=== PATIENT | male | born 1950 | race African-American/Black ===

== ENCOUNTER 2020-03-14 18:35 | Emergency (ER) | payer OTHER ==
--- NOTE | 2020-03-14 19:39 | RAD ---
EXAM: CHEST ONE VIEW HISTORY: Shortness of breath and weakness. Decreased appetite. COMPARISON: 11/12/2019 FINDINGS: Cardiac silhouette remains in enlarged. Pulmonary vasculature is within normal limits. There has been interval resolution in the bilateral perihilar interstitial and patchy parenchymal opacities when compared to prior exam. The lungs appear clear on today's examination, and there is no consolidation or pleural fluid. No other interval change. IMPRESSION: No acute cardiopulmonary process.
[2020-03-14 19:52] LABS: Hemoglobin 13.8 g/dL (14.0-18.0); Mean Corpuscular Hemoglobin 28.7 pg (27.0-31.0); Mean Corpuscular Volume 84.5 fL (78.0-98.0); Mean Platelet Volume 8.2 fL (7.4-10.4); Platelet Count 159 thou/uL (130-400); RBC Distribution Width 13.7 % (11.5-14.5); Red Blood Cell (RBC) Count 4.81 mill/uL (4.70-6.10); White Blood Cell (WBC) Count 3.5 thou/uL (4.8-10.8)
[2020-03-14 20:10] LABS: ALT (SGPT) 16 U/L (8-55); AST (SGOT) 31 U/L (5-34); Albumin 4.2 g/dL (3.4-4.8); Alkaline Phosphatase 96 U/L (40-110); Anion Gap 18 mmol/L (10-20); BUN (Urea Nitrogen) 32 mg/dL (8.4-25.7); Bilirubin, Total 0.7 mg/dL (0.2-1.2); Calc. Creatinine Clearance 0 mL/min (70-130); Calcium 9.5 mg/dL (7.8-10.44); Carbon Dioxide 20 mmol/L (23-31); Chloride 95 mmol/L (98-107); Estimated GFR-MDRD 48; Glucose 89 mg/dL (83-110); Potassium 3.2 mmol/L (3.5-5.1); Protein, Total 7.2 g/dL (5.8-8.1); Sodium 130 mmol/L (136-145)
[2020-03-14 20:16] LABS: Band 42 % (5-11); Lymphocytes 5 % (21-51); MDiff Complete? YES; Monocytes 3 % (0-10); Neutrophil 47 % (42-75); Ovalocytes SLIGHT = 2-5 cells (100X) (0-1/hpf); Platelet Morphology Comment Appears Adequate; Polychromasia SLIGHT = 2-3 cells (100X) (0-2/hpf); Reactive Lymphocytes 3 % (0-10); Reflex for Review?? YES; Tear Drops SLIGHT = 2-5 cells (100X) (0-1/hpf)
[2020-03-14] MEDS ORDERED: Potassium Chloride 20 MEQ TAB ONE (20:35)
[2020-03-14] MEDS ORDERED: hydrOXYzine 25 MG TAB ONE (20:35)
[2020-03-14] MEDS ORDERED: Nitroglycerin 2% Ointment 1 INCH/1 GM Packet ONE (20:35)
== END 2020-03-14 21:00 | disposition left against medical advice (07) ==
LOC: ERS 18:35
DX: I11.0 Hypertensive heart disease with heart failure (principal); I50.9 Heart failure, unspecified; E87.6 Hypokalemia; E87.1 Hypo-osmolality and hyponatremia; N19 Unspecified kidney failure; F43.10 Post-traumatic stress disorder, unspecified; J44.9 Chronic obstructive pulmonary disease, unspecified; Z87.891 Personal history of nicotine dependence; Z85.038 Personal history of other malignant neoplasm of large intestine; Z85.46 Personal history of malignant neoplasm of prostate; Z79.899 Other long term (current) drug therapy
CPT/HCPCS: 36415; 71045; 80053; 83880; 84484; 85025; 85060; 93005

== ENCOUNTER 2020-07-28 10:31 | Emergency (ER) | payer OTHER ==
--- NOTE | 2020-07-28 11:14 | RAD ---
Chest AP view INDICATION: Weakness COMPARISON: March 14, 2020 FINDINGS: Lungs: The lungs are clear Cardiac silhouette: Stable cardiomegaly. Stable tortuosity of the aorta. Pulmonary vasculature: Normal Pleural spaces: No pleural effusion or pneumothorax is demonstrated. Upper abdomen: No abnormality seen. Osseous structures: No acute osseous abnormality. Additional findings: None. IMPRESSION: Stable cardiomegaly.
[2020-07-28] MEDS ORDERED: Lorazepam 1 MG TAB ONE (11:52)
[2020-07-28 14:09] LABS: #Basophils 0.1 thou/uL (0.0-0.2); #Eosinphils 0.3 thou/uL (0.0-0.7); #Lymphocytes 1.2 thou/uL (1.20-3.40); #Monocytes 0.6 thou/uL (0.11-0.59); %Basophils 1.3 % (0.0-1.0); %Eosinophils 6.2 % (0.0-10.0); %Lymphocytes 30.1 % (21.0-51.0); %Monocytes 13.2 % (0.0-10.0); %Neutrophils 49.2 % (42.0-75.0); Hemoglobin 13.7 g/dL (14.0-18.0); Mean Corpuscular HGB CONC 33.8 g/dL (32.0-36.0); Mean Corpuscular Hemoglobin 30.1 pg (27.0-31.0); Mean Platelet Volume 7.5 fL (7.4-10.4); Platelet Count 176 thou/uL (130-400); RBC Distribution Width 11.8 % (11.5-14.5); Red Blood Cell (RBC) Count 4.56 mill/uL (4.70-6.10); White Blood Cell (WBC) Count 4.1 thou/uL (4.8-10.8)
[2020-07-28 14:33] LABS: ALT (SGPT) 13 U/L (8-55); AST (SGOT) 28 U/L (5-34); Albumin 4.1 g/dL (3.4-4.8); Alkaline Phosphatase 81 U/L (40-110); Anion Gap 16 mmol/L (10-20); BUN (Urea Nitrogen) 25 mg/dL (8.4-25.7); Bilirubin, Total 0.6 mg/dL (0.2-1.2); CK (CPK) 114 U/L (30-200); Calc. Creatinine Clearance 0 mL/min (70-130); Calcium 9.2 mg/dL (7.8-10.44); Carbon Dioxide 21 mmol/L (23-31); Chloride 101 mmol/L (98-107); Estimated GFR-MDRD 62; Globulin 3.2 g/dL (2.4-3.5); Glucose 86 mg/dL (83-110); Potassium 3.9 mmol/L (3.5-5.1); Protein, Total 7.3 g/dL (5.8-8.1); Sodium 134 mmol/L (136-145)
--- NOTE | 2020-07-31 17:11 | EKG ---
Test Reason : Blood Pressure : / mmHG Vent. Rate : 056 BPM Atrial Rate : 056 BPM P-R Int : 176 ms QRS Dur : 090 ms QT Int : 482 ms P-R-T Axes : 063 -36 094 degrees QTc Int : 465 ms Sinus bradycardia Possible Left atrial enlargement Left axis deviation Left ventricular hypertrophy with repolarization abnormality Cannot rule out Septal infarct , age undetermined Abnormal ECG Confirmed by STARR GONZALEZ DO ([id number]), sound editor BONIFACIO JORDAN ([id number]) on 07/31/2020 5:10:34 PM Referred By: Confirmed By:STARR GONZALEZ DO
== END 2020-07-28 15:30 | disposition home or self-care (01) ==
LOC: ERS 10:31
DX: F43.0 Acute stress reaction (principal); F41.9 Anxiety disorder, unspecified; Z79.899 Other long term (current) drug therapy; I11.0 Hypertensive heart disease with heart failure; I50.9 Heart failure, unspecified
CPT/HCPCS: 36415; 71045; 80053; 82550; 84484; 85025; 93005

== ENCOUNTER 2020-10-29 19:05 | Inpatient (IN) | payer OTHER ==
[~2020-10-29 19:05] MED LIST: Iopamidol-370 76% 500 ML 1 ML ONE
[2020-10-29] MEDS ORDERED: Morphine 4 MG/ML VIAL ONE (19:43)
[2020-10-29 19:45] LABS: #Basophils 0.1 thou/uL (0.0-0.2); #Eosinphils 0.2 thou/uL (0.0-0.7); #Lymphocytes 1.1 thou/uL (1.20-3.40); #Monocytes 0.5 thou/uL (0.11-0.59); #Neutrophils 5.7 thou/uL (1.40-6.50); %Basophils 1.9 % (0.0-1.0); %Monocytes 6.3 % (0.0-10.0); %Neutrophils 75.8 % (42.0-75.0); Hemoglobin 13.9 g/dL (14.0-18.0); Mean Corpuscular Hemoglobin 29.7 pg (27.0-31.0); Mean Corpuscular Volume 87.4 fL (78.0-98.0); Mean Platelet Volume 7.5 fL (7.4-10.4); Platelet Count 213 thou/uL (130-400); RBC Distribution Width 12.8 % (11.5-14.5); Red Blood Cell (RBC) Count 4.67 mill/uL (4.70-6.10); White Blood Cell (WBC) Count 7.5 thou/uL (4.8-10.8)
--- NOTE | 2020-10-29 19:47 | RAD ---
Portable frontal chest radiograph: 10/29/2020 COMPARISON: 07/28/2020 HISTORY: Abdominal pain, chest pain FINDINGS: Stable prominence of the cardiac silhouette. No pneumothorax or pleural fluid is seen and t here is no focal consolidation or alveolar edema. IMPRESSION: No acute findings-stable appearance of the chest.
[2020-10-29 20:03] LABS: ALT (SGPT) 17 U/L (8-55); AST (SGOT) 28 U/L (5-34); Albumin 4.7 g/dL (3.4-4.8); Alkaline Phosphatase 102 U/L (40-110); Anion Gap 16 mmol/L (10-20); BUN (Urea Nitrogen) 30 mg/dL (8.4-25.7); Bilirubin, Total 0.6 mg/dL (0.2-1.2); Calc. Creatinine Clearance 0 mL/min (70-130); Calcium 10.4 mg/dL (7.8-10.44); Carbon Dioxide 26 mmol/L (23-31); Chloride 98 mmol/L (98-107); Globulin 3.4 g/dL (2.4-3.5); Glucose 133 mg/dL (83-110); Lipase 21 U/L (8-78); Potassium 4.2 mmol/L (3.5-5.1); Protein, Total 8.1 g/dL (5.8-8.1); Sodium 136 mmol/L (136-145)
--- NOTE | 2020-10-29 20:32 | CT ---
CT abdomen and pelvis: 10/29/2020 COMPARISON: None HISTORY: Abdominal pain with vomiting TECHNIQUE: Axial CT imaging at 5 mm intervals from lung bases through pubic symphysis with IV contras t. Coronal and sagittal reformatted imaging obtained. FINDINGS: The visualized lung bases are unremarkable. No free intraperitoneal air. The stomach is markedly distended and fluid-filled. There is small volum e abnormal free fluid within the pelvis posterior and superior to the urinary bladder. The gallbladder is not well assessed on this exam but appears grossly unremarkable. No suspicious focal l iver lesion is evident. Trace pericardial fluid is noted. The spleen, pancreas, and adrenal glands demonstrate no acute findings. Bilateral low-density renal lesions are noted, likely on the basis of multiple cysts. There are numerous postoperative clips within the pelvis suggesting prior prostatectomy. There is sma ll volume free fluid within the right lower quadrant. The colon is decompressed and there are numerous dilated fluid-filled small bowel loops seen througho ut the abdomen/pelvis. There is a transition point to decompressed distal small bowel within the medial right lower quadrant. There are postoperative clips and there is postoperative suture material in the right lower quadrant associated with the bowel. There is scattered atherosclerotic calcification of the abdominal aorta and its branches. No pelvic, retroperitoneal, or mesenteric lymphadenopathy is seen. There is prominent degenerative change involving the L4-5 interspace. No worrisome lytic or blastic b one lesion. IMPRESSION: Prominent distended and fluid-filled stomach and small bowel with transition to decompres sed small bowel within the right lower quadrant consistent with high-grade small bowel obstruction. Associated small volume free fluid noted in the right lower quadrant/pelvis. Surgical consultation ad vised.
--- NOTE | 2020-10-29 22:37 | PDOC.FPRHP ---
- History of Present Illness Chief Complaint: Abdominal pain History of Present Illness: 70yo M presented to ED with complaint of abdominal pain. He has history of surgery for prostate cancer and ex lap for bowel resection for colon cancer. He states today after eating around noon he developed severe left sided abdominal pain. Since then it has continued and was associated with nausea, burping, and distention. He notes 1 normal bowel movement last night and 2 very small hard bowel movements today. He denies any blood in his stools. In ED patient was found to have high grade small bowel obstruction on the right with small amount of right sided free fluid. They attempted NG tube x2 but pt vomited both times and it came out. Currently pt notes continued abdominal pain that has improved since arrival. He denies history of abdominal pain. ED Course: Morphine for pain. CT abd showing right sided high grade SBO. Called Dr. Howard and agreed to see pt and requested medicine to admit. - Allergies/Adverse Reactions Allergies Allergy/AdvReac Type Severity Reaction Status Date / Time No Known Drug Allergies Allergy Verified 10/30/20 13:38 - History PMHx: cataract, HTN, COPD, CHF, prostate CA, Colon CA. PSHx: Ex lap w/ colon resection, prostatectomy FHx: Non contributory Social: Rare alcohol, occasional smoker - former consistent smoker, denies drugs - Review of Systems General: reports: weight/appetite/sleep changes (decreased appetite). denies: fever/chills Eyes: denies: vision changes, other ENT: denies: nasal congestion, rhinorrhea Respiratory: denies: cough, shortness of breath Cardiovascular: denies: chest pain, edema Gastrointestinal: reports: nausea, constipation, abdominal pain. denies: vomiting, diarrhea, GI bleeding Genitourinary: denies: dysuria, polyuria Skin: denies: rashes, lesions Musculoskeletal: denies: pain, swelling Neurological: denies: syncope, weakness - Vital signs BP: 167/94, Pulse: 74, Resp: 18, Temp: 98.3 (Oral), Pain: 3, O2 sat: 97 on (Room Air), Wt: 56kg - Physical Exam Constitutional: NAD, awake, alert and oriented, well developed HEENT: normocephalic and atraumatic, EOMI -HEENT: cataracts Neck: FROM, trachea midline Heart: RRR, normal S1/S2 Lungs: CTAB, no respiratory distress, good air movement -Abdomen: Distended, tympanic to percussion, no peritoneal signs, no bowel sounds heard Neurological: no focal deficit, CN II-XII intact Skin: no rash/lesions, good turgor Heme/Lymphatic: no unusual bruising or bleeding, no purpura Psychiatric: normal mood and affect, good judgment and insight, intact recent and remote memory FMR H&P: Results - Labs Result Diagrams: 10/30/20 05:18 10/30/20 05:18 Lab results: WBC 7.5 thou/uL (4.8-10.8) 10/29/20 19:29 Hgb 13.9 g/dL (14.0-18.0) L 10/29/20 19:29 Hct 40.8 % (42.0-52.0) L 10/29/20 19:29 MCV 87.4 fL (78.0-98.0) 10/29/20 19:29 Plt Count 213 thou/uL (130-400) 10/29/20 19:29 Neutrophils % 75.8 % (42.0-75.0) H 10/29/20 19:29 Sodium 136 mmol/L (136-145) 10/29/20 19:29 Potassium 4.2 mmol/L (3.5-5.1) 10/29/20 19:29 Chloride 98 mmol/L (98-107) 10/29/20 19:29 Carbon Dioxide 26 mmol/L (23-31) 10/29/20 19:29 BUN 30 mg/dL (8.4-25.7) H 10/29/20 19:29 Creatinine 1.83 mg/dL (0.7-1.3) H 10/29/20 19:29 Glucose 133 mg/dL (83-110) H 10/29/20 19:29 Calcium 10.4 mg/dL (7.8-10.44) 10/29/20 19:29 Total Bilirubin 0.6 mg/dL (0.2-1.2) 10/29/20 19:29 AST 28 U/L (5-34) 10/29/20 19:29 ALT 17 U/L (8-55) 10/29/20 19:29 Alkaline Phosphatase 102 U/L (40-110) 10/29/20 19:29 CK-MB (CK-2) 3.0 ng/mL (0-6.6) 10/29/20 19:29 Serum Total Protein 8.1 g/dL (5.8-8.1) 10/29/20 19:29 Albumin 4.7 g/dL (3.4-4.8) 10/29/20 19: Lipase 21 U/L (8-78) 10/29/20 19:29 - Radiology Interpretation CT scan - abdomen Status: report reviewed by me ( Prominent distended and fluid-filled stomach and small bowel with transition to decompressed small bowel within the right lower quadrant consistent with high-grade small bowel obstruction. Associated small volume free fluid noted in the right lower quadrant/pelvis. Surgical consultation ad vis) FMR H&P: A/P - Plan Small bowel obstruction - Confirmed on CT abd - Hx of abdominal surgeries - likely due to adhesions - Dr. Howard, general surgery, consulted from ED, appreciate recs - Re-attempt NG tube for decompression - IVF at 1.5x maintenance for bowel resuscitation - NPO BREANNA - Cr. 1.87, baseline 1.3 - IVF and trend BMP Indeterminate trop - 0.033 - Could be due to worsening renal function - Asx, no EKG changes - Trend Chronic Medical Hx HTN - resume home rx when reconsiled, prn hydralazine SBP >180 CHF - monitor fluid status with IVF, resume home meds when reconsiled COPD - currently stable on room air, resume inhailers when reconsiled IVF: LR @ 150 VTE: SCD, hold anticoag in case of surgery Diet: NPO Code: Full Dispo: Admit to tele inpatient. Surgery on board. Bowel decompression and resuscitation. PCP: SUSHMA Bennett DO - PGY2 FMR H&P: Upper Level - Plan Date/Time: 10/29/202236 Addendum - Attending - Attending Attestation Date/Time: 10/29/202119 I personally evaluated the patient and discussed the management with Dr. Bennett. I agree with the History, Examination, Assessment and Plan documented above with any addition or exceptions noted below. The patient presents with abdominal pain. High grade small bowel obstruction noted on CT scan. NG tube has been placed twice and pt vomited it back up. Gen surg is being consulted. Will add prn's for blood pressure.
[2020-10-30] MEDS: Lactated Ringer's 1,000 ML IV SCH ×5 (01:20→22:07)
[2020-10-30 01:34] LABS: Bilirubin Negative (Negative); Blood, Urine Negative (Negative); Clarity Clear (Clear); Glucose, Urine (Dipstick) Normal (Negative); Ketone, Urine Negative (Negative); Leukocyte Negative Leu/uL (Negative); Nitrite Negative (Negative); Protein, Urine (Dipstick) Negative (Neg-Trace); Specific Gravity, Urine 1.033 (1.002-1.036); Urobilinogen Normal mg/dL (Less than 2); pH, Urine 7.5 (5.0-9.0)
[2020-10-30 01:43] LABS: Troponin I 0.031 ng/mL (< 0.028)
[2020-10-30] MEDS ORDERED: Ondansetron ODT 4 MG TAB PO PRN (02:24)
[2020-10-30] MEDS ORDERED: hydrALAZINE 20 MG/ML VIAL SLOW IVP PRN (02:24)
[2020-10-30 02:26] VITALS: BMI 18.4
[2020-10-30] MEDS ORDERED: Morphine 4 MG/ML VIAL SLOW IVP SCH (02:30)
[2020-10-30] MEDS ORDERED: hydrALAZINE 20 MG/ML VIAL ONE (02:46)
[2020-10-30] MEDS ORDERED: Ondansetron PF 4 MG/2 ML Vial ONE ×2 (02:46→09:33)
[2020-10-30] MEDS ORDERED: Morphine 2 MG/ML VIAL ONE (02:46)
[2020-10-30] MEDS: Ondansetron PF 4 MG/2 ML Vial IVP PRN ×2 (02:51→09:35)
[2020-10-30] MEDS: Morphine 2 MG/ML VIAL SLOW IVP PRN ×2 (02:54→09:35)
--- NOTE | 2020-10-30 05:00 | PDOC.FM ---
- Subjective Subjective: Patient is resting comfortably in bed. Notes that his nausea and abdominal pain are improved. Denies other concerns, no fever/chills, CP/SOB. - Objective MAR Reviewed: Yes Vital Signs & Weight: Vital Signs (12 hours) Pulse BP 10/30/20 02:57 93 187/123 H Weight Weight 56.7 kg Result Diagrams: 10/30/20 05:18 10/30/20 05:18 Phys Exam - Physical Examination Constitutional: NAD HEENT: PERRLA, moist MMs Respiratory: no wheezing, clear to auscultation bilateral Cardiovascular: RRR, no significant murmur mild distention superior to umbilucus, no peritoneal signs, no BS heard Musculoskeletal: no edema Neurological: non-focal Psychiatric: normal affect, A&O x 3 Dx/Plan - Plan Plan: Small bowel obstruction - Confirmed on CT abd - Likely 2/2 adhesions, with Hx of ex lap for bowel resection for colon cancer, hx surgery for prostate cancer - Dr. Howard, general surgery, consulted from ED, appreciate recs - NG tube placed for decompression - IVF at 1.5x maintenance for bowel resuscitation - NPO BREANNA - Cr. 1.87 -> 1.74, baseline 1.3 - IVF and trend BMP Indeterminate trop - 0.033 - > 0.031 - Possibly 2/2 worsening renal function - Asx, no EKG changes - continue to monitor on tele HTN - NPO> will hold chlorthalidone, carvedilol, hydralazine pending surg recs - prn IV hydralazine CHF - monitor fluid status with IVF - will resume lasix and isosorbide dinitrate pending surg recs COPD - currently stable on room air Hx PTSD - will resume citalopram pending surg recs IVF: LR @ 150 VTE: SCD, hold anticoag in case of surgery Diet: NPO Code: Full Dispo: Admit to tele inpatient. Surgery on board. Bowel decompression and resuscitation. PCP: SUSHMA Addendum - Attending - Attending Attestation Date/Time: 10/30/20 [id number] I personally evaluated the patient and discussed the management with Dr. Todd. I agree with the History, Examination, Assessment and Plan documented above with any addition or exceptions noted below. The patient is feeling better. Abdomen less distended than last night. Will replace NG tube. Gen surg has been consulted.
[2020-10-30] MEDS ORDERED: Morphine 4 MG/ML VIAL ONE ×2 (05:05→09:33)
[2020-10-30 05:28] LABS: #Lymphocytes 0.6 thou/uL (1.20-3.40); #Monocytes 0.5 thou/uL (0.11-0.59); #Neutrophils 11.7 thou/uL (1.40-6.50); %Eosinophils 0.2 % (0.0-10.0); %Lymphocytes 4.3 % (21.0-51.0); %Neutrophils 91.5 % (42.0-75.0); Hemoglobin 13.7 g/dL (14.0-18.0); Mean Corpuscular HGB CONC 33.9 g/dL (32.0-36.0); Mean Corpuscular Hemoglobin 29.9 pg (27.0-31.0); Mean Corpuscular Volume 88.2 fL (78.0-98.0); Mean Platelet Volume 7.3 fL (7.4-10.4); Platelet Count 207 thou/uL (130-400); RBC Distribution Width 12.8 % (11.5-14.5); Red Blood Cell (RBC) Count 4.59 mill/uL (4.70-6.10); White Blood Cell (WBC) Count 12.8 thou/uL (4.8-10.8)
[2020-10-30 05:48] LABS: ALT (SGPT) 15 U/L (8-55); AST (SGOT) 27 U/L (5-34); Albumin 4.5 g/dL (3.4-4.8); Alkaline Phosphatase 88 U/L (40-110); Anion Gap 16 mmol/L (10-20); BUN (Urea Nitrogen) 30 mg/dL (8.4-25.7); Bilirubin, Total 0.6 mg/dL (0.2-1.2); Calc. Creatinine Clearance 31 mL/min (70-130); Calcium 10.2 mg/dL (7.8-10.44); Carbon Dioxide 25 mmol/L (23-31); Chloride 99 mmol/L (98-107); Globulin 3.4 g/dL (2.4-3.5); Glucose 141 mg/dL (83-110); Potassium 3.9 mmol/L (3.5-5.1); Protein, Total 7.9 g/dL (5.8-8.1); Sodium 136 mmol/L (136-145)
--- NOTE | 2020-10-30 09:22 | RAD ---
XR Abdomen 1 View/KUB History: NG tube placement Comparison: Abdomen pelvis CT prior day Findings: Enteric tube tip just beyond the GE junction with side port above the GE junction. Dilated loops of bowel in the abdomen. Evaluation for free air is limited without an upright exam. Impression: Enteric tube side port above the GE junction. Recommend advancing 5 to 6 cm.
[2020-10-30] MEDS: Atorvastatin Calcium 10 MG TAB PO SCH (09:44)
[2020-10-30] MEDS: Citalopram 20 MG TAB PO SCH (09:45)
[2020-10-30] MEDS: Carvedilol 25 MG TAB PO SCH ×2 (09:45→22:06)
[2020-10-30] MEDS: Chlorthalidone 25 MG TAB PO SCH (09:45)
[2020-10-30] MEDS: hydrALAZINE 25 MG TAB PO SCH ×3 (09:45→22:06)
[2020-10-30 09:57] LABS: SARS-CoV-2 PCR by NAA Not Detected (NotDetected)
[2020-10-30] MEDS ORDERED: Labetalol HCl 100 MG/20 ML VIAL SLOW IVP SCH (10:00)
--- NOTE | 2020-10-30 10:08 | RAD ---
XR Abdomen 1 View/KUB History: NG tube placement Comparison: Radiograph same day Findings: Enteric tube is in place with side port beyond the GE junction. Impression: Satisfactory location of the enteric tube.
[2020-10-30] MEDS: Famotidine/PF 20 mg/2ml Vial SLOW IVP SCH (10:10)
[2020-10-30] MEDS ORDERED: MD-Gastroview 120 ML BOT ONE (11:39)
--- NOTE | 2020-10-30 16:05 | RAD ---
XR Small Bowel STANDARD History: Bowel obstruction Comparison: Abdomen pelvis CT prior day Findings: Enteric contrast was initially to the patient via the enteric tube. There is contrast withi n the large bowel after 3 hours. Impression: Contrast within the large bowel after 3 hours. No high-grade bowel obstruction.
--- NOTE | 2020-10-30 20:05 | CON ---
DATE OF CONSULTATION: HISTORY OF PRESENT ILLNESS: Kuldip Alvarado is a 70-year-old black male, 5 feet 9 inches, 125 pounds, BMI 18, has had previous prostatectomy and has had a colon resection for malignancy many years ago at the [facility]. The patient states he began having abdominal pain yesterday, had a bowel movement yesterday, passed flatus this morning, seen in the emergency room. CAT scan suggested a bowel obstruction. NG tube placed last night. Records are not available about outputs from the emergency room as he is cared for there overnight due to lack of bed availability in the floor, but I have a verbal report. He put out over 700 to 800 mL out of his NG tube, canister with change. He however did pass flatus. Plain x-rays obtained this morning for NG tube placement revealed it is in good position. It was advanced slightly. Plain x-rays this morning revealed gas in the colon. He underwent a small bowel follow-through within 3 hours. There was contrast in the colon and he has had numerous bowel movements. I placed his NG tube to suction and there was not any significant output. NG tube was removed. PAST MEDICAL HISTORY: Cataracts history, hypertension, COPD, CHF, prostate cancer, colon cancer. PAST SURGICAL HISTORY: Prostatectomy, colon resection in [facility]. SOCIAL HISTORY: Rare alcohol use. Occasional smoker when he is anxious. Drug use, none. The patient is retired . REVIEW OF SYSTEMS: Noncontributory otherwise. MEDICATIONS AT HOME: 1. Furosemide. 2. Celexa. 3. Chlorthalidone. 4. Imdur ER. 5. Carvedilol. 6. Hydralazine. 7. Atorvastatin. FAMILY HISTORY: Noncontributory. REVIEW OF SYSTEMS: Noncontributory. PHYSICAL EXAMINATION: VITAL SIGNS: 5 feet 9 inches, 125 pounds, 18 BMI. Temperature 98.8 degrees, pulse 75, blood pressure 177/92. HEAD, EARS, EYES, NOSE AND THROAT: Unremarkable. LUNGS: Clear to auscultation. CARDIAC: Regular rate and rhythm. No murmur or gallop. ABDOMEN: Soft, nontender, nondistended, non-tympanitic. Surgical scar well healed, midline, periumbilical. There are no hernias. There are no groin hernias. There are no ventral hernias. EXTREMITIES: Unremarkable. LABORATORY DATA: White count 12 and hemoglobin 13. Basic metabolic profile normal with BUN and creatinine slightly elevated on admission 30 and 1.83, this morning 30 and 1.74 probably indicative of chronic kidney disease. ASSESSMENT AND PLAN: Small bowel obstruction, resolved. Remove NG tube. Advance diet probably and resume his medications. Hold his diuretics. Possibly could be discharged home tomorrow pending clinical course. Follow up with me benitez Job ID: [id number]
[2020-10-31 04:34] LABS: #Eosinphils 0.1 thou/uL (0.0-0.7); #Lymphocytes 0.8 thou/uL (1.20-3.40); #Monocytes 0.7 thou/uL (0.11-0.59); %Basophils 0.4 % (0.0-1.0); %Eosinophils 0.5 % (0.0-10.0); %Monocytes 5.7 % (0.0-10.0); %Neutrophils 86.4 % (42.0-75.0); Hemoglobin 11.3 g/dL (14.0-18.0); Mean Corpuscular HGB CONC 32.5 g/dL (32.0-36.0); Mean Corpuscular Hemoglobin 29.5 pg (27.0-31.0); Mean Corpuscular Volume 90.8 fL (78.0-98.0); Mean Platelet Volume 7.8 fL (7.4-10.4); Platelet Count 152 thou/uL (130-400); RBC Distribution Width 12.9 % (11.5-14.5); Red Blood Cell (RBC) Count 3.82 mill/uL (4.70-6.10); White Blood Cell (WBC) Count 11.5 thou/uL (4.8-10.8)
--- NOTE | 2020-10-31 05:19 | PDOC.FM ---
- Subjective Subjective: Patient is resting comfortably in bed. Notes that his abdominal pain is resolved. No nausea, vomiting, BM changes, CP, shortness of breath. - Objective MAR Reviewed: Yes Vital Signs & Weight: Vital Signs (12 hours) Temp Pulse Resp BP Pulse Ox 10/31/20 04:00 98.6 F 74 24 H 162/77 H 96 10/31/20 00:00 71 136/70 10/30/20 22:06 81 10/30/20 20:05 98.2 F 81 14 169/91 H 98 10/30/20 20:00 96 Weight Admit Weight 56.7 kg Weight 56.7 kg I&O: 10/29/20 10/30/20 10/31/20 06:59 06:59 06:59 Intake Total 0 Balance 0 Result Diagrams: 10/31/20 03:59 10/31/20 03:59 Phys Exam - Physical Examination Constitutional: NAD HEENT: PERRLA, moist MMs Respiratory: no wheezing, clear to auscultation bilateral Cardiovascular: RRR, no significant murmur Gastrointestinal: soft, non-tender Musculoskeletal: no edema Neurological: non-focal, moves all 4 limbs Psychiatric: A&O x 3 Skin: no rash Dx/Plan - Plan Plan: Small bowel obstruction, resolved SBO Confirmed on CT abd Small bowel XR: contrast within large bowel x3 hours, no high-grade bowel obstruction Likely 2/2 adhesions, with Hx of ex lap for bowel resection for colon cancer, hx surgery for prostate cancer - Dr. Howard, general surgery, consulted from ED, appreciate recs - NG tube removed, advancing diet, clear for d/c - will stop IV fluids BREANNA on suspected CKD - Cr. 1.87 -> 1.74> 1.83, baseline 1.3-1.4; GFR 40s - s/p IVF - will recommend outpatient BMP with PCP within 1 week to follow Indeterminate trop - 0.033 - > 0.031 - Possibly 2/2 worsening renal function - Asx, no EKG changes - continue to monitor on tele HTN -resume chlorthalidone, carvedilol, hydralazine - prn IV hydralazine CHF - monitor fluid status with IVF - isosorbide dinitrate resumed, will resume lasix tomorrow s/p diet today COPD - currently stable on room air Hx PTSD - will resume citalopram IVF: LR @ 150 VTE: SCD Diet: NPO Code: Full Dispo: Likely dispo today, pending diet tolerance. F/u with Lee hoskins. PCP: SUSHMA Addendum - Attending - Attending Attestation Date/Time: 10/31/20 1212 I personally evaluated the patient and discussed the management with Dr. Todd. I agree with the History, Examination, Assessment and Plan documented above with any addition or exceptions noted below. Patient is feeling much better. Had Jello last night. If he tolerates breakfast, can d/c home.
[2020-10-31 05:22] LABS: ALT (SGPT) 10 U/L (8-55); AST (SGOT) 20 U/L (5-34); Albumin 3.7 g/dL (3.4-4.8); Alkaline Phosphatase 60 U/L (40-110); Anion Gap 16 mmol/L (10-20); BUN (Urea Nitrogen) 38 mg/dL (8.4-25.7); Bilirubin, Total 0.6 mg/dL (0.2-1.2); Calc. Creatinine Clearance 29 mL/min (70-130); Calcium 8.9 mg/dL (7.8-10.44); Carbon Dioxide 24 mmol/L (23-31); Chloride 103 mmol/L (98-107); Glucose 93 mg/dL (83-110); Potassium 3.8 mmol/L (3.5-5.1); Protein, Total 6.7 g/dL (5.8-8.1); Sodium 139 mmol/L (136-145)
[2020-10-31] MEDS: Chlorthalidone 25 MG TAB PO SCH (08:50)
[2020-10-31] MEDS: Citalopram 20 MG TAB PO SCH (08:50)
[2020-10-31] MEDS: Famotidine/PF 20 mg/2ml Vial SLOW IVP SCH (08:51)
[2020-10-31] MEDS: Atorvastatin Calcium 10 MG TAB PO SCH (08:51)
[2020-10-31] MEDS: hydrALAZINE 25 MG TAB PO SCH (08:51)
[2020-10-31] MEDS: Carvedilol 25 MG TAB PO SCH (08:51)
[2020-10-31] MEDS ORDERED: FLU VACC QS2020-21(65YR UP)/PF 240 MCG/0.7 ML SYRINGE IM ONE (09:00)
[2020-10-31 12:21] VITALS: BP 144/75; TEMP 98.2
[2020-10-31] MEDS: Lactated Ringer's 1,000 ML IV SCH (14:02)
--- NOTE | 2020-11-01 06:23 | DIS ---
DATE OF ADMISSION: 10/29/2020 DATE OF DISCHARGE: 10/31/2020 RESIDENT: Jasmin Todd DO. ADMITTING ATTENDING: Ashley Bruno MD. DISCHARGE ATTENDING: Ashley Bruno MD. CONSULTS: General Surgery, Dr. Howard. PROCEDURES: None. PRIMARY DIAGNOSIS: Small-bowel obstruction, resolved. SECONDARY DIAGNOSES: Acute kidney injury on suspected chronic kidney disease, indeterminate troponin, hypertension, congestive heart failure, chronic obstructive pulmonary disease, history of posttraumatic stress disorder. DISCHARGE MEDICATIONS: 1. Atorvastatin 10 mg p.o. daily. 2. Carvedilol 50 mg p.o. b.i.d. 3. Chlorthalidone 25 mg p.o. daily. 4. Citalopram 60 mg p.o. daily. 5. Furosemide 40 mg p.o. daily. 6. Hydralazine 25 mg p.o. t.i.d. 7. Isosorbide mononitrate 30 mg p.o. daily. Discontinued medications: None. HISTORY OF PRESENT ILLNESS/HOSPITAL COURSE: The patient is a 70-year-old male, history of surgery for prostate cancer and ex lap for bowel resection for colon cancer, who presented to the ED with abdominal pain after eating. In the ED, he was found to have a high-grade small bowel obstruction on the right on abdominal CT with a small amount of right-sided free fluid. NG tube was attempted x2 in the ED and was unsuccessful, but was successful on the floor. The patient had a lot of relief the next day following NG tube placement. General Surgery, Dr. Howard was consulted who ordered a small bowel x-ray, which showed contrast within the large bowel for 3 hours with no high-grade bowel obstruction. Dr. Howard at that point, recommended NG tube removal, advancing diet which the patient tolerated and the patient is cleared for discharge once tolerating diet. The patient had an elevated creatinine on admission of 1.87, baseline appears to be 1.3 to 1.4 from records, however, unsure. GFR in the 40s. Recommended to have outpatient followup with his primary care physician in one week. Indeterminate troponin of 0.033 to 0.031, possibly secondary to worsening renal function. Monitored on tele with no changes. DISPOSITION: Stable. DISCHARGE INSTRUCTIONS: 1. Location: Home. 2. Diet: Regular. 3. Activity: Ad nitish. 4. Followup: Follow up with Dr. Howard as needed. Follow up with your primary physician within one week to have a BMP to follow kidney function. Job ID: [id number]
[2020-11-01] MEDS ORDERED: Furosemide 40 MG TAB PO SCH (09:00)
== END 2020-10-31 13:10 | disposition home or self-care (01) | DRG 389 ==
LOC: ERS 19:05 → ERHOLD 21:49 → 2NO 10-30 13:11
PROVIDERS: ADMIT Family Medicine; ATTEND Family Medicine
PROC: 0D9670Z Drainage of Stomach with Drainage Device, Via Natural or Artificial Opening (ICD-10-PCS; principal; 2020-10-30)
DX: K56.50 Intestinal adhesions [bands], unspecified as to partial versus complete obstruction (principal); N17.9 Acute kidney failure, unspecified; J44.9 Chronic obstructive pulmonary disease, unspecified; F43.10 Post-traumatic stress disorder, unspecified; I11.0 Hypertensive heart disease with heart failure; I50.9 Heart failure, unspecified; Z20.822 Contact with and (suspected) exposure to COVID-19; Z85.038 Personal history of other malignant neoplasm of large intestine; Z85.46 Personal history of malignant neoplasm of prostate; Z79.899 Other long term (current) drug therapy; Z87.891 Personal history of nicotine dependence; Z90.49 Acquired absence of other specified parts of digestive tract; Z90.79 Acquired absence of other genital organ(s)
CPT/HCPCS: 36415; 71045; 74018; 74177; 74250; 80053; 81003; 82553; 83690; 84484; 85025; 87635; 93005; 96374; J0360; J2270; J2405; Q9963; Q9967; S0028; U0003; U0005

== ENCOUNTER 2020-11-02 14:59 | Emergency (ER) | payer OTHER ==
[2020-11-02 15:34] LABS: Bilirubin Negative (Negative); Blood, Urine Negative (Negative); Clarity Clear (Clear); Glucose, Urine (Dipstick) Normal (Negative); Ketone, Urine Negative (Negative); Leukocyte Negative Leu/uL (Negative); Nitrite Negative (Negative); Protein, Urine (Dipstick) Negative (Neg-Trace); Specific Gravity, Urine 1.006 (1.002-1.036); Urobilinogen Normal mg/dL (Less than 2); pH, Urine 7.5 (5.0-9.0)
[2020-11-02 15:51] LABS: Amphetamine Not Detected (NotDetected); Barbiturates Screen Not Detected (NotDetected); Benzodiazepine Screen Not Detected (NotDetected); Cocaine Metabolite Screen Not Detected (NotDetected); Medtox Control Line Valid? VALID (VALID); Medtox Reader # READER 4; Methadone Not Detected (NotDetected); Methamphetamine Not Detected (NotDetected); Opiate Screen Not Detected (NotDetected); Oxycodone Screen Not Detected (NotDetected); Phencyclidine (PCP) Not Detected (NotDetected); THC/Cannabinoid Screen Not Detected (NotDetected); Tricyclic Screen Not Detected (NotDetected)
[2020-11-02] MEDS ORDERED: Lorazepam 2 MG/ML VIAL ONE ×2 (15:54→15:56)
[2020-11-02 15:57] LABS: #Eosinphils 0.2 thou/uL (0.0-0.7); #Lymphocytes 1.1 thou/uL (1.20-3.40); #Monocytes 0.7 thou/uL (0.11-0.59); #Neutrophils 3.2 thou/uL (1.40-6.50); %Basophils 0.6 % (0.0-1.0); %Lymphocytes 20.9 % (21.0-51.0); %Monocytes 13.4 % (0.0-10.0); %Neutrophils 61.1 % (42.0-75.0); Hemoglobin 12.2 g/dL (14.0-18.0); Mean Corpuscular HGB CONC 33.5 g/dL (32.0-36.0); Mean Corpuscular Hemoglobin 29.5 pg (27.0-31.0); Mean Corpuscular Volume 88.1 fL (78.0-98.0); Mean Platelet Volume 7.4 fL (7.4-10.4); Platelet Count 209 thou/uL (130-400); RBC Distribution Width 12.3 % (11.5-14.5); Red Blood Cell (RBC) Count 4.14 mill/uL (4.70-6.10); White Blood Cell (WBC) Count 5.2 thou/uL (4.8-10.8)
[2020-11-02 16:23] LABS: Acetaminophen Less than 6.0 mcg/mL (10.0-30.0); Alcohol Less than 10 mg/dL (Less than 10); Salicylate Less than 8.0 mg/dL (15.0-30.0)
[2020-11-02 16:24] LABS: ALT (SGPT) 15 U/L (8-55); AST (SGOT) 26 U/L (5-34); Albumin 4.2 g/dL (3.4-4.8); Alkaline Phosphatase 72 U/L (40-110); Anion Gap 12 mmol/L (10-20); BUN (Urea Nitrogen) 27 mg/dL (8.4-25.7); Bilirubin, Total 0.6 mg/dL (0.2-1.2); Calc. Creatinine Clearance 0 mL/min (70-130); Calcium 9.3 mg/dL (7.8-10.44); Carbon Dioxide 29 mmol/L (23-31); Chloride 95 mmol/L (98-107); Globulin 3.2 g/dL (2.4-3.5); Glucose 88 mg/dL (83-110); Potassium 4.1 mmol/L (3.5-5.1); Protein, Total 7.4 g/dL (5.8-8.1); Sodium 132 mmol/L (136-145)
--- NOTE | 2020-11-02 16:27 | RAD ---
EXAM: Single view of the chest HISTORY: Altered mental status COMPARISON: 10/29/2020 FINDINGS: Single view of the chest shows an enlarged but stable cardiomediastinal silhouette. There i s no evidence of consolidation, mass, or pleural effusion. No acute osseous abnormality. IMPRESSION: Stable cardiomegaly
[2020-11-03] MEDS ORDERED: Carvedilol 25 MG TAB PO SCH (09:30)
[2020-11-03] MEDS ORDERED: Cholecalciferol 1,000 UNITS (25 MCG) TAB PO SCH (09:45)
[2020-11-03] MEDS ORDERED: Furosemide 40 MG TAB PO SCH (09:45)
[2020-11-03] MEDS ORDERED: Lorazepam 2 MG/ML VIAL IM SCH ×2 (09:45)
[2020-11-03] MEDS ORDERED: hydrALAZINE 25 MG TAB PO SCH (09:45)
[2020-11-03] MEDS ORDERED: Lorazepam 2 MG/ML VIAL SLOW IVP SCH (09:45)
[2020-11-03] MEDS ORDERED: Spironolactone 25 MG TAB PO SCH (09:45)
[2020-11-03] MEDS ORDERED: hydrALAZINE 25 MG TAB ONE (09:56)
[2020-11-03] MEDS ORDERED: Furosemide 40 MG TAB ONE (09:56)
== END 2020-11-03 11:47 | disposition home or self-care (01) ==
LOC: ERS 14:59
DX: F43.20 Adjustment disorder, unspecified (principal); I13.0 Hypertensive heart and chronic kidney disease with heart failure and stage 1 through stage 4 chronic kidney disease, or unspecified chronic kidney disease; N18.9 Chronic kidney disease, unspecified; I50.9 Heart failure, unspecified; J44.9 Chronic obstructive pulmonary disease, unspecified; Z87.891 Personal history of nicotine dependence; Z79.899 Other long term (current) drug therapy
CPT/HCPCS: 36415; 71045; 80053; 80306; 80307; 81003; 84443; 85025; 93005; 96372; J2060

== ENCOUNTER 2021-01-17 18:13 | Emergency (ER) | payer OTHER ==
[2021-01-17 18:50] LABS: #Basophils 0.1 thou/uL (0.0-0.2); #Eosinphils 0.4 thou/uL (0.0-0.7); #Lymphocytes 1.3 thou/uL (1.20-3.40); #Monocytes 0.7 thou/uL (0.11-0.59); #Neutrophils 2.7 thou/uL (1.40-6.50); %Basophils 1.2 % (0.0-1.0); %Eosinophils 8.4 % (0.0-10.0); %Monocytes 13.5 % (0.0-10.0); %Neutrophils 51.9 % (42.0-75.0); Hemoglobin 11.8 g/dL (14.0-18.0); Mean Corpuscular HGB CONC 33.6 g/dL (32.0-36.0); Mean Corpuscular Hemoglobin 29.7 pg (27.0-31.0); Mean Corpuscular Volume 88.4 fL (78.0-98.0); Mean Platelet Volume 7.3 fL (7.4-10.4); Platelet Count 202 thou/uL (130-400); RBC Distribution Width 12.1 % (11.5-14.5); Red Blood Cell (RBC) Count 3.97 mill/uL (4.70-6.10); White Blood Cell (WBC) Count 5.3 thou/uL (4.8-10.8)
[2021-01-17] MEDS ORDERED: hydrALAZINE 20 MG/ML VIAL ONE ×2 (18:56→19:34)
[2021-01-17 19:13] LABS: ALT (SGPT) 15 U/L (8-55); AST (SGOT) 25 U/L (5-34); Albumin 4.3 g/dL (3.4-4.8); Alkaline Phosphatase 105 U/L (40-110); Anion Gap 13 mmol/L (10-20); BUN (Urea Nitrogen) 28 mg/dL (8.4-25.7); Bilirubin, Total 0.5 mg/dL (0.2-1.2); Calc. Creatinine Clearance 0 mL/min (70-130); Carbon Dioxide 21 mmol/L (23-31); Chloride 101 mmol/L (98-107); Glucose 87 mg/dL (83-110); Lipase 43 U/L (8-78); Potassium 3.9 mmol/L (3.5-5.1); Protein, Total 7.3 g/dL (5.8-8.1); Sodium 131 mmol/L (136-145)
[2021-01-17 19:16] LABS: PTT 49.4 sec (22.9-36.1); Prothrombin Time 13.5 sec (12.0-14.7)
[2021-01-17 19:23] LABS: Bilirubin Negative (Negative); Blood, Urine Negative (Negative); Clarity Clear (Clear); Glucose, Urine (Dipstick) Normal (Negative); Ketone, Urine Negative (Negative); Leukocyte Negative Leu/uL (Negative); Nitrite Negative (Negative); Protein, Urine (Dipstick) Negative (Neg-Trace); Specific Gravity, Urine 1.005 (1.002-1.036); Urobilinogen Normal mg/dL (Less than 2); pH, Urine 5.5 (5.0-9.0)
[2021-01-17 19:28] LABS: Acetaminophen Less than 6.0 mcg/mL (10.0-30.0); Alcohol Less than 10 mg/dL (Less than 10); Salicylate Less than 8.0 mg/dL (15.0-30.0)
[2021-01-17 19:33] LABS: Amphetamine Not Detected (NotDetected); Benzodiazepine Screen Not Detected (NotDetected); Cocaine Metabolite Screen Detected (NotDetected); Medtox Reader # READER 4; Methamphetamine Not Detected (NotDetected); Opiate Screen Not Detected (NotDetected); Phencyclidine (PCP) Not Detected (NotDetected); THC/Cannabinoid Screen Not Detected (NotDetected)
[2021-01-17 19:34] LABS: Barbiturates Screen Not Detected (NotDetected); Medtox Control Line Valid? VALID (VALID); Methadone Not Detected (NotDetected); Oxycodone Screen Not Detected (NotDetected); Tricyclic Screen Not Detected (NotDetected)
[2021-01-17] MEDS ORDERED: Acetaminophen 500 MG TAB ONE (19:34)
== END 2021-01-17 20:11 | disposition home or self-care (01) ==
LOC: ERS 18:13
DX: F14.988 Cocaine use, unspecified with other cocaine-induced disorder (principal); R07.9 Chest pain, unspecified; I11.0 Hypertensive heart disease with heart failure; I50.9 Heart failure, unspecified; I16.0 Hypertensive urgency; J44.9 Chronic obstructive pulmonary disease, unspecified; Z85.46 Personal history of malignant neoplasm of prostate; Z85.038 Personal history of other malignant neoplasm of large intestine; Z87.891 Personal history of nicotine dependence; Z79.899 Other long term (current) drug therapy
CPT/HCPCS: 71045; 71275; 74174; 80053; 80306; 80307; 81003; 83690; 83880; 84484; 85025; 85610; 85730; 96374; J0360

== ENCOUNTER 2021-07-15 00:55 | Emergency (ER) | payer OTHER | END 2021-07-15 01:36 | disposition home or self-care (01) | LOC: ERS 00:55 | DX: I11.0 Hypertensive heart disease with heart failure (principal); I50.9 Heart failure, unspecified; J44.9 Chronic obstructive pulmonary disease, unspecified; Z87.891 Personal history of nicotine dependence | CPT/HCPCS: 99283 ==

== ENCOUNTER 2021-07-16 10:57 | Emergency (ER) | payer OTHER ==
[2021-07-16] MEDS ORDERED: Nitroglycerin 2% Ointment 1 INCH/1 GM Packet ONE (11:29)
[2021-07-16 13:20] LABS: Hemoglobin 13.8 g/dL (14.0-18.0); Mean Corpuscular Hemoglobin 30.6 pg (27.0-31.0); Mean Corpuscular Volume 89.8 fL (78.0-98.0); Mean Platelet Volume 7.6 fL (7.4-10.4); Platelet Count 183 thou/uL (130-400); RBC Distribution Width 11.9 % (11.5-14.5); Red Blood Cell (RBC) Count 4.51 mill/uL (4.70-6.10); White Blood Cell (WBC) Count 4.4 thou/uL (4.8-10.8)
[2021-07-16 13:38] LABS: ALT (SGPT) 14 U/L (8-55); AST (SGOT) 25 U/L (5-34); Albumin 4.1 g/dL (3.4-4.8); Alkaline Phosphatase 96 U/L (40-110); Anion Gap 14 mmol/L (10-20); BUN (Urea Nitrogen) 27 mg/dL (8.4-25.7); Bilirubin, Total 0.6 mg/dL (0.2-1.2); Calc. Creatinine Clearance 0 mL/min (70-130); Calcium 9.1 mg/dL (7.8-10.44); Carbon Dioxide 20 mmol/L (23-31); Chloride 105 mmol/L (98-107); Globulin 2.9 g/dL (2.4-3.5); Glucose 75 mg/dL (83-110); Lipase 30 U/L (8-78); Sodium 135 mmol/L (136-145)
[2021-07-16 13:44] LABS: Eosinophils 5 % (0-10); Lymphocytes 20 % (21-51); MDiff Complete? YES; Monocytes 12 % (0-10); Neutrophil 49 % (42-75); Platelet Morphology Comment Appears Adequate; RBC Morphology Normal; Reactive Lymphocytes 10 % (0-10)
[2021-07-16 14:23] LABS: SARS-CoV-2 NAA Rapid Test Not Detected (NotDetected)
[2021-07-16] MEDS ORDERED: hydrALAZINE 25 MG TAB ONE (16:28)
== END 2021-07-16 19:54 | disposition left against medical advice (07) ==
LOC: ERS 10:57
DX: R07.2 Precordial pain (principal); I11.0 Hypertensive heart disease with heart failure; I50.9 Heart failure, unspecified; J44.9 Chronic obstructive pulmonary disease, unspecified; Z20.822 Contact with and (suspected) exposure to COVID-19; Z87.891 Personal history of nicotine dependence
CPT/HCPCS: 36415; 71045; 80053; 83690; 84484; 85025; 93005; U0002

== ENCOUNTER 2021-07-22 12:13 | Emergency (ER) | payer OTHER ==
[2021-07-22] MEDS ORDERED: Fluorescein Opthalmic Strip ONE (12:37)
[2021-07-22] MEDS ORDERED: Proparacaine 0.5% Opth 15 ML BOT ONE (12:38)
[2021-07-22] MEDS ORDERED: hydrALAZINE 10 MG TAB PO SCH (13:15)
[2021-07-22] MEDS ORDERED: Spironolactone 25 MG TAB PO SCH (13:15)
[2021-07-22] MEDS ORDERED: Carvedilol 25 MG TAB PO SCH (13:15)
== END 2021-07-22 14:56 | disposition home or self-care (01) ==
LOC: ERS 12:13
DX: R06.02 Shortness of breath (principal); I10 Essential (primary) hypertension; E78.00 Pure hypercholesterolemia, unspecified; J45.909 Unspecified asthma, uncomplicated; F17.210 Nicotine dependence, cigarettes, uncomplicated; Z79.899 Other long term (current) drug therapy
CPT/HCPCS: 70450; 93005